=== PATIENT | female | born 1930 | race Caucasian/White ===

== ENCOUNTER 2018-07-11 09:29 | Outpatient (CLI) | payer MEDICARE ==
--- NOTE | 2018-07-12 12:18 | CT Report ---
Reason: DEMENTIA Procedure Date: 07/11/2018 Accession Number: [id number] / [id number] Procedure: CT - Head W/O CPT Code: FULL RESULT: EXAM: CT HEAD EXAM DATE: 07/11/2018 09:56 AM. CLINICAL HISTORY: Dementia. COMPARISON: None. TECHNIQUE: Multiaxial CT images were obtained from the foramen magnum to the vertex. Reformats: Sagittal and coronal. IV contrast: None. In accordance with CT protocol optimization, one or more of the following dose reduction techniques were utilized for this exam: automated exposure control, adjustment of mA and/or KV based on patient size, or use of iterative reconstructive technique. FINDINGS: Parenchyma: No intraparenchymal hemorrhage. No evidence of mass, midline shift, or CT findings of acute infarction. Thibodeaux-white differentiation is distinct. Diffuse chronic microangiopathic white matter changes are evident. Extraaxial Spaces: Normal for age. No subdural or epidural collections identified. Ventricles: The ventricles and cortical sulci are enlarged, consistent with age-related tissue loss. Sinuses and orbits: Imaged paranasal sinuses, orbits, and mastoids show no significant abnormality. Bones: No evidence of fracture or calvarial defect. Other: None. IMPRESSION: Generalized age-related cortical atrophic changes without evidence of acute intracranial abnormality. RADIA
== END 2018-07-11 09:30 | disposition home or self-care (01) ==
LOC: DI 09:29
PROVIDERS: ATTEND Internal Medicine
DX: F03.90 Unspecified dementia, unspecified severity, without behavioral disturbance, psychotic disturbance, mood disturbance, and anxiety (principal)
CPT/HCPCS: 70450

== ENCOUNTER 2018-08-03 14:28 | Outpatient (CLI) | payer MEDICARE ==
[2018-08-03 18:01] LABS: BASOPHILS # (AUTO) 0.1 10^3/uL (0.0-0.1); BASOPHILS % (AUTO) 0.7 %; EOSINOPHILS # (AUTO) 0.1 10^3/uL (0.0-0.7); EOSINOPHILS % (AUTO) 0.6 %; HGB - HEMOGLOBIN 13.5 g/dL (12.0-16.0); LYMPHOCYTES # (AUTO) 2.1 10^3/uL (1.5-3.5); LYMPHOCYTES % (AUTO) 16.2 %; MEAN CORPUSCULAR HEMOGLOBIN 29.9 pg (27.0-31.0); MEAN CORPUSCULAR HGB CONC 32.5 g/dL (32.0-36.0); MEAN CORPUSCULAR VOLUME 92.2 fL (81.0-99.0); MEAN PLATELET VOLUME 9.5 fL (7.9-10.8); MONOCYTES # (AUTO) 0.7 10^3/uL (0.0-1.0); MONOCYTES % (AUTO) 5.3 %; NEUTROPHILS # (AUTO) 9.8 10^3/uL (1.5-6.6); NEUTROPHILS % (AUTO) 77.2 %; PLT - PLATELET COUNT 245 10^3/uL (130-450); RED BLOOD COUNT 4.51 10^6/uL (4.20-5.40); RED CELL DISTRIBUTION WIDTH 13.7 % (12.0-15.0); WHITE BLOOD COUNT 12.7 x10^3/uL (4.8-10.8)
[2018-08-03 18:14] LABS: BUN - BLOOD UREA NITROGEN 13 mg/dL (6-20); CALCIUM 9.2 mg/dL (8.5-10.3); CARBON DIOXIDE - CO2 26 mmol/L (21-32); CHLORIDE 103 mmol/L (101-111); CREATININE 0.8 mg/dL (0.4-1.0); GFR - MDRD 68 (>89); GLUCOSE 109 mg/dL (70-100); SODIUM 139 mmol/L (135-145)
[2018-08-03 18:24] LABS: THYROID STIMULATING HORMONE 3.56 uIU/mL (0.34-5.60)
== END 2018-08-03 14:29 | disposition home or self-care (01) ==
LOC: LAB.F 14:28
PROVIDERS: ATTEND Internal Medicine
DX: I12.9 Hypertensive chronic kidney disease with stage 1 through stage 4 chronic kidney disease, or unspecified chronic kidney disease (principal); N18.3 Chronic kidney disease, stage 3 (moderate); J30.9 Allergic rhinitis, unspecified; F03.90 Unspecified dementia, unspecified severity, without behavioral disturbance, psychotic disturbance, mood disturbance, and anxiety; R73.01 Impaired fasting glucose; Z86.010 Personal history of colon polyps; L98.9 Disorder of the skin and subcutaneous tissue, unspecified
CPT/HCPCS: 36415; 80048; 82607; 84443; 85025

== ENCOUNTER 2019-07-28 05:59 | Outpatient (CLI) | payer MEDICARE | END 2019-07-28 06:00 | disposition critical access hospital (66) | LOC: EMS 05:59 | PROVIDERS: ATTEND Surgery | DX: R41.82 Altered mental status, unspecified (principal) | CPT/HCPCS: A0425; A0429 ==

== ENCOUNTER 2019-07-28 06:40 | Emergency (ER) | payer MEDICARE ==
[2019-07-28 06:50] VITALS: BP 160/82
--- NOTE | 2019-07-28 06:56 | ED Physician Documentation ---
PD HPI ALTERED MENTAL STATUS - Stated complaint Stated Complaint: ALOC - Chief complaint Chief Complaint: Neuro - History obtained from History obtained from: Patient, EMS - History of Present Illness Timing - onset: Today Basline status: Ambulatory, Confused, Home Recently seen: Not recently seen - Additional information Additional information: An 88-year-old woman who was brought in by EMS for evaluation of wandering into the neighbor's house in the middle of the night. 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 She is lived in the same house for over 30 years and knows the neighbors well. The neighbors called the police who came and took patient back to her own home and in the process of questioning her were concerned about her safety. Apparently she has been wandering potentially for months.EMS was summoned to bring her here for evaluation and there is a reported mental hold that will be sent by the police. They found a prescription for Risperdal and lisinopril and her home but they were quite old bottles. They said her house is immaculate. Patient herself is not able to provide me any history just answers "I just do not know" to every question. 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 HEENT: Cataracts - Present Medications Home Medications: Ambulatory Orders Medication Instructions Recorded Confirmed Aspirin [Aspir 81] 81 mg PO DAILY 09/11/13 04/11/14 Lisinopril [Zestril] 20 mg PO DAILY 09/11/13 04/11/14 - Allergies Allergies/Adverse Reactions: Allergies Allergy/AdvReac Type Severity Reaction Status Date / Time No Known Drug Allergies Allergy Verified 04/08/14 13:44 - Social History Does the pt smoke?: No Smoking Status: Never smoker Does the pt drink ETOH?: Yes Does the pt have substance abuse?: No - Immunizations Immunizations are current?: Yes PD ED PE NORMAL - Vitals Vital signs reviewed: Yes - General General: No acute distress, Well developed/nourished, Other (She knows her name but thinks that she is in [facility]. She is very pleasant smiling and laughing) - HEENT HEENT: Atraumatic, PERRL, EOMI, Moist mucous membranes, Pharynx benign, Other (There is a large scabbed lesion on the left side of her nose suspicious for a malignant lesion.) - Neck Neck: No adenopathy, Thyroid normal - Cardiac Cardiac: RRR, No murmur, Strong equal pulses - Respiratory Respiratory: No respiratory distress, Clear bilaterally - Abdomen Abdomen: Normal bowel sounds, Soft, Non tender, Non distended, No organomegaly - Derm Derm: Normal color, Warm and dry, Other (Lesion on her nose as noted above) - Extremities Extremities: No deformity, No tenderness to palpate, Normal ROM s pain, Other (Trace pretibial edema) - 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
[2019-07-28 07:16] LABS: BASOPHILS # (AUTO) 0.1 10^3/uL (0.0-0.1); BASOPHILS % (AUTO) 1.4 %; EOSINOPHILS # (AUTO) 0.1 10^3/uL (0.0-0.7); EOSINOPHILS % (AUTO) 1.9 %; HGB - HEMOGLOBIN 12.4 g/dL (12.0-16.0); LYMPHOCYTES # (AUTO) 1.3 10^3/uL (1.5-3.5); LYMPHOCYTES % (AUTO) 24.3 %; MEAN CORPUSCULAR HEMOGLOBIN 29.7 pg (27.0-31.0); MEAN CORPUSCULAR HGB CONC 31.3 g/dL (32.0-36.0); MEAN CORPUSCULAR VOLUME 94.7 fL (81.0-99.0); MEAN PLATELET VOLUME 10.2 fL (7.9-10.8); MONOCYTES # (AUTO) 0.4 10^3/uL (0.0-1.0); MONOCYTES % (AUTO) 7.2 %; NEUTROPHILS # (AUTO) 3.3 10^3/uL (1.5-6.6); NEUTROPHILS % (AUTO) 64.8 %; PLT - PLATELET COUNT 240 10^3/uL (130-450); RED BLOOD COUNT 4.18 10^6/uL (4.20-5.40); RED CELL DISTRIBUTION WIDTH 13.7 % (12.0-15.0); WHITE BLOOD COUNT 5.1 x10^3/uL (4.8-10.8)
[2019-07-28 07:36] LABS: ACETAMINOPHEN < 10 ug/mL (10-30); ALBUMIN 3.9 g/dL (3.2-5.5); ALBUMIN/GLOBULIN RATIO 1.2 (1.0-2.2); ALKALINE PHOSPHATASE 23 IU/L (42-121); ALT ALANINE AMINOTRANSFERASE 42 IU/L (10-60); AST ASPARTATE AMINOTRANSFERASE 38 IU/L (10-42); BILIRUBIN,TOTAL 0.7 mg/dL (0.2-1.0); BUN - BLOOD UREA NITROGEN 16 mg/dL (6-20); CARBON DIOXIDE - CO2 28 mmol/L (21-32); CHLORIDE 103 mmol/L (101-111); CREATININE 0.7 mg/dL (0.4-1.0); GFR - MDRD 79 (>89); GLUCOSE 104 mg/dL (70-100); LIPASE 32 U/L (22-51); SALICYLATE < 6.0 mg/dL; SODIUM 140 mmol/L (135-145); TOTAL PROTEIN 7.2 g/dL (6.7-8.2)
--- NOTE | 2019-07-28 07:48 | CT Report ---
Reason: confused Procedure Date: 07/28/2019 Accession Number: [id number] / [id number] Procedure: CT - HEAD WO CPT Code: FULL RESULT: EXAM: CT HEAD EXAM DATE: 07/28/2019 07:40 AM. CLINICAL HISTORY: Confused. COMPARISON: HEAD W/O 07/11/2018 9:54 AM. TECHNIQUE: Multiaxial CT images were obtained from the foramen magnum to the vertex. Reformats: Sagittal and coronal. IV contrast: None. In accordance with CT protocol optimization, one or more of the following dose reduction techniques were utilized for this exam: automated exposure control, adjustment of mA and/or KV based on patient size, or use of iterative reconstructive technique. FINDINGS: Parenchyma: No intraparenchymal hemorrhage. No evidence of mass, midline shift, or CT findings of acute infarction. Thibodeaux-white differentiation is distinct. Diffuse chronic microangiopathic white matter changes are evident. Extraaxial Spaces: Normal for age. No subdural or epidural collections identified. Ventricles: The ventricles and cortical sulci are enlarged, consistent with age-related tissue loss. Sinuses and orbits: Imaged paranasal sinuses, orbits, and mastoids show no significant abnormality. Bones: No evidence of fracture or calvarial defect. Other: None. IMPRESSION: Generalized age-related cortical atrophic changes without evidence of acute intracranial abnormality. RADIA
[2019-07-28 09:32] LABS: MUDS CUTOFF CONCENTRATIONS CUTOFF CONC BELOW:
[2019-07-28 09:37] LABS: BILIRUBIN,URINE NEGATIVE (NEGATIVE); GLUCOSE, URINE (UA) NEGATIVE (NEGATIVE); KETONES,URINE (UA) TRACE mg/dL (NEGATIVE); LEUKOCYTE ESTERASE, URINE SMALL (NEGATIVE); NITRITE,URINE NEGATIVE (NEGATIVE); OCCULT BLOOD,URINE NEGATIVE (NEGATIVE); PROTEIN,URINE NEGATIVE (NEGATIVE); UROBILINOGEN,URINE 0.2 (NORMAL) E.U./dL (NORMAL)
[2019-07-28 09:52] LABS: AMPHETAMINE SCREEN,URINE NEGATIVE (NEGATIVE); BENZODIAZEPINES SCREEN, URINE NEGATIVE (NEGATIVE); COCAINE SCREEN URINE NEGATIVE (NEGATIVE); METHADONE SCREEN, URINE NEGATIVE (NEGATIVE); METHAMPHETAMINES SCREEN, URINE NEGATIVE (NEGATIVE); OPIATE SCREEN, URINE NEGATIVE (NEGATIVE); OXYCODONE SCREEN, URINE NEGATIVE (NEGATIVE); PROPOXYPHENE SCREEN, URINE NEGATIVE (NEGATIVE); TRICYCLIC ANTIDEPRESSANT,URINE NEGATIVE (NEGATIVE)
[2019-07-28 10:01] LABS: CLARITY,URINE CLEAR (CLEAR); RBC,URINE 0-5 /HPF (0-5); SQUAMOUS EPITHELIAL CELL,UR RARE Squamous (<= Few)
[2019-07-28 10:02] LABS: BACTERIA,URINE Rare /HPF (None Seen)
--- NOTE | 2019-07-28 13:50 | ED Physician Documentation ---
ED Addendum - Addendum Addendum: 07/28/19 13:48 The patient is more alert and oriented after being here in the ER. She is able to say that her son lives in [place] and that she does grocery shopping and goes by taxi and her address. Her CT scan and lab testing are normal without any acute signs of abnormalities. She is seen by social work and also they discussed with her APS linoleum floor installer and her son. The apparently they are looking into dementia care unit placement but are not able to do that urgently. The patient was deemed safe for home at this point and her linoleum floor installer would come and visit her this afternoon and reassess. The patient is discharged home in stable condition. Diagnosis dementia with wandering Disposition discharged home in stable condition
== END 2019-07-28 14:13 | disposition home or self-care (01) ==
LOC: EDSEX → ED 06:40
DX: F03.91 Unspecified dementia, unspecified severity, with behavioral disturbance (principal); Z91.83 Wandering in diseases classified elsewhere; I10 Essential (primary) hypertension; Z79.82 Long term (current) use of aspirin
CPT/HCPCS: 36415; 70450; 80053; 80306; 80307; 80320; 80329; 81001; 81003; 83690; 84443; 85025; 87086; 93005; 99281; 99284

== ENCOUNTER 2020-06-02 18:04 | Emergency (ER) | payer MEDICARE ==
[2020-06-02] MEDS ORDERED: cefTRIAXone 1 GM VIAL IM STA (18:25)
[2020-06-02] MEDS ORDERED: LIDOCAINE 1% 2 ML VIAL MC ONE (18:25)
[2020-06-02 18:45] LABS: BASOPHILS # (AUTO) 0.1 10^3/uL (0.0-0.1); BASOPHILS % (AUTO) 0.8 %; EOSINOPHILS # (AUTO) 0.2 10^3/uL (0.0-0.7); EOSINOPHILS % (AUTO) 2.3 %; HGB - HEMOGLOBIN 12.6 g/dL (12.0-16.0); LYMPHOCYTES # (AUTO) 2.2 10^3/uL (1.5-3.5); LYMPHOCYTES % (AUTO) 22.2 %; MEAN CORPUSCULAR HEMOGLOBIN 30.4 pg (27.0-31.0); MEAN CORPUSCULAR HGB CONC 32.3 g/dL (32.0-36.0); MEAN CORPUSCULAR VOLUME 94.2 fL (81.0-99.0); MEAN PLATELET VOLUME 10.8 fL (7.9-10.8); MONOCYTES # (AUTO) 0.6 10^3/uL (0.0-1.0); MONOCYTES % (AUTO) 5.8 %; NEUTROPHILS # (AUTO) 6.7 10^3/uL (1.5-6.6); NEUTROPHILS % (AUTO) 68.4 %; PLT - PLATELET COUNT 236 10^3/uL (130-450); RED BLOOD COUNT 4.14 10^6/uL (4.20-5.40); RED CELL DISTRIBUTION WIDTH 13.5 % (12.0-15.0); WHITE BLOOD COUNT 9.7 x10^3/uL (4.8-10.8)
[2020-06-02 18:59] LABS: ALBUMIN 3.8 g/dL (3.2-5.5); ALBUMIN/GLOBULIN RATIO 1.2 (1.0-2.2); BILIRUBIN,TOTAL 0.5 mg/dL (0.2-1.0); TOTAL PROTEIN 6.9 g/dL (6.7-8.2)
--- NOTE | 2020-06-02 19:17 | ED Physician Documentation ---
History of Present Illness - Stated complaint Stated Complaint: LETHARGIC - Chief complaint Chief Complaint: UTI - History obtained from History obtained from: Patient, EMS - History of Present Illness Timing: How many days ago (several days) Pain level max: 0 Pain level now: 0 - Additonal information Additional information: Patient brought in by EMS for UTI. She was diagnosed 2 days ago, started on Macrobid. Staff states that she is more combative than usual and brought her here for evaluation. Patient is awake and pleasant here. She states she was raised in [facility]. She has no complaints. No fevers. No vomiting. 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 HEENT: Cataracts - Present Medications Home Medications: Ambulatory Orders Medication Instructions Recorded Confirmed Aspirin [Aspir 81] 81 mg PO DAILY 09/11/13 04/11/14 lisinopriL [Zestril] 20 mg PO DAILY 09/11/13 04/11/14 Ciprofloxacin HCl [Cipro] 500 mg PO BID #14 tablet 06/02/20 - Allergies Allergies/Adverse Reactions: Allergies Allergy/AdvReac Type Severity Reaction Status Date / Time No Known Drug Allergies Allergy Verified 06/02/20 18:14 - Social History Does the pt smoke?: No Smoking Status: Never smoker Does the pt drink ETOH?: Yes Does the pt have substance abuse?: No - Immunizations Immunizations are current?: Yes - POLST Patient has POLST: No PD ED PE NORMAL - Vitals Vital signs reviewed: Yes - General General: No acute distress, Well developed/nourished, Other (alert, pleasant) - HEENT HEENT: Moist mucous membranes - Neck Neck: Supple, no meningeal sign - Cardiac Cardiac: RRR - Respiratory Respiratory: No respiratory distress, Clear bilaterally - Abdomen Abdomen: Soft, Non tender, Non distended - Back Back: No CVA TTP - Derm Derm: Warm and dry - Extremities Extremities: Other (1+ bilateral lower extremity pitting edema) - Neuro Neuro: Other (Alert, pleasant) Results - Vitals Vitals: Vital Signs - 24 hr 06/02/20 06/02/20 18:09 19:18 Temperature 37.1 C Heart Rate 76 72 Respiratory 18 18 Rate Blood Pressure 118/63 113/46 L O2 Saturation 96 98 Oxygen O2 Source Room air - Labs Labs: Laboratory Tests 06/02/20 06/02/20 06/02/20 18:30 18:30 18:30 WBC 9.7 RBC 4.14 L Hgb 12.6 Hct 39.0 MCV 94.2 MCH 30.4 MCHC 32.3 RDW 13.5 Plt Count 236 MPV 10.8 Neut # (Auto) 6.7 H Lymph # (Auto) 2.2 Coles # (Auto) 0.6 Eos # (Auto) 0.2 Baso # (Auto) 0.1 Absolute Nucleated RBC 0.00 Nucleated RBC % 0.0 Sodium 142 Potassium 3.1 L Chloride 101 Carbon Dioxide 31 Anion Gap 10.0 BUN 22 H Creatinine 1.0 Estimated GFR (MDRD) 52 L Glucose 123 H Lactic Acid 1.1 Calcium 9.0 Total Bilirubin 0.5 AST 55 H ALT 47 Alkaline Phosphatase 28 L Total Protein 6.9 Albumin 3.8 Globulin 3.1 Albumin/Globulin Ratio 1.2 Lipase 34 PD MEDICAL DECISION MAKING - ED course Complexity details: reviewed old records, considered differential, d/w patient ED course: Patient with a UTI. Her cultures and sensitivities were sent with her. She is on Macrobid, but grew out Pseudomonas. It is resistant to most oral antibiotics other than fluoroquinolones. Therefore we will place her on ciprofloxacin. Patient is well-appearing, nontoxic. Afebrile. No sepsis. This document was made in part using voice recognition software. While efforts are made to proofread this document, sound alike and grammatical errors may occur. Departure - Departure Disposition: 01 Home, Self Care Clinical Impression: Urinary tract infection Qualifiers: Urinary tract infection type: acute cystitis Hematuria presence: without hematuria Qualified Code(s): N30.00 - Acute cystitis without hematuria Condition: Good Instructions: ED UTI Cystitis Female Follow-Up: your,doctor in 3 days [Other] Prescriptions: Ciprofloxacin HCl [Cipro] 500 mg PO BID #14 tablet Comments: Stop the Macrobid. Start the ciprofloxacin. Return if she worsens. Discharge Date/Time: 06/02/20 19:25
[2020-06-02 19:19] VITALS: BP 113/46
== END 2020-06-02 19:25 | disposition home or self-care (01) ==
LOC: EDUNIT# → ED 18:04
DX: N30.00 Acute cystitis without hematuria (principal); B96.5 Pseudomonas (aeruginosa) (mallei) (pseudomallei) as the cause of diseases classified elsewhere; F03.90 Unspecified dementia, unspecified severity, without behavioral disturbance, psychotic disturbance, mood disturbance, and anxiety; I10 Essential (primary) hypertension; Z79.82 Long term (current) use of aspirin
CPT/HCPCS: 36415; 80053; 83605; 83690; 85025; 87040; 96372; 99283; 99284

== ENCOUNTER 2020-08-01 12:46 | Outpatient (CLI) | payer MEDICARE | END 2020-08-01 12:47 | disposition critical access hospital (66) | LOC: EMS 12:46 | PROVIDERS: ATTEND Surgery | DX: R53.83 Other fatigue (principal) | CPT/HCPCS: A0425; A0429 ==

== ENCOUNTER 2020-08-01 13:03 | Emergency (ER) | payer MEDICARE ==
--- NOTE | 2020-08-01 13:27 | ED Physician Documentation ---
History of Present Illness - Stated complaint Stated Complaint: HIP PX/GLF - Chief complaint Chief Complaint: Ext Problem - Additonal information Additional information: 89-year-old female presents the emergency department from her care facility for evaluation of possible hip fracture. At baseline she does have dementia and the halfway reported 2 falls recently. They are concerned that she may have a hip fracture and that she has been less ambulatory than normal. History is difficult to obtain from patient secondary to dementia. She denies pain at this time and otherwise appears well. 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 HEENT: Cataracts - Present Medications Home Medications: Ambulatory Orders Medication Instructions Recorded Confirmed Aspirin [Aspir 81] 81 mg PO DAILY 09/11/13 04/11/14 lisinopriL [Zestril] 20 mg PO DAILY 09/11/13 04/11/14 Ciprofloxacin HCl [Cipro] 500 mg PO BID #14 tablet 06/02/20 - Allergies Allergies/Adverse Reactions: Allergies Allergy/AdvReac Type Severity Reaction Status Date / Time No Known Drug Allergies Allergy Verified 08/01/20 13:15 - Social History Does the pt smoke?: No Smoking Status: Never smoker Does the pt drink ETOH?: Yes Does the pt have substance abuse?: No - Immunizations Immunizations are current?: Yes - POLST Patient has POLST: No PD ED PE EXPANDED - General General: No acute distress, Other (demented) - Neck Neck: Supple w/out meningeal sx. No: No tenderness, Soft tissue TTP, Limited ROM - Cardiac Cardiac: Regular Rate, Regular Rhythm, Radial strong equal, Femoral strong equa l, Pedal strong equal, Cap refill < 2 sec - Respiratory Respiratory: Clear to ausultation morenita. No: Distress, Labored - Back Back: No: Vertebral tenderness, Soft tissue tenderness (No vertebral tenderness elicited with palpation of the thoracic and lumbar spine midline.) - Extremities Extremities: Other (Full range of motion bilateral hips passively. No leg shortening. 2+ femoral pulse bilaterally. No ecchymosis or swelling.) - GCS Eye Opening: To Voice Motor: Obeys Commands Verbal: Confused Total: 13 Results - Vitals Vitals: Vital Signs - 24 hr 08/01/20 08/01/20 13:10 16:00 Temperature 35.9 C L Heart Rate 63 68 Respiratory 14 16 Rate Blood Pressure 148/67 H 144/65 H O2 Saturation 96 95 Oxygen O2 Source Room air - Rads (name of study) Hip Bilateral Radiology: Final report received (No acute fracture or dislocation) PD MEDICAL DECISION MAKING - ED course Complexity details: reviewed results, considered differential ED course: 89-year-old female with an underlying history of dementia presents to the emergency department for evaluation of possible hip fracture after 2 falls in the last week. Screening x-ray of the hips and pelvis does not show any acute fracture. On exam patient had no leg shortening or significant pain with ranging the hips passively. There were no findings on exam of falls or trauma. Patient will be transported back to her memory care facility Departure - Departure Disposition: 01 Home, Self Care Clinical Impression: Fall Dementia Qualifiers: Dementia type: unspecified type Dementia behavioral disturbance: without behavioral disturbance Qualified Code(s): F03.90 - Unspecified dementia without behavioral disturbance Condition: Stable Record reviewed to determine appropriate education?: Yes Comments: The x-ray of Fercho's hip and pelvis do not show any broken bones bilaterally. Please discuss this ED visit with the attending physician Discharge Date/Time: 08/01/20 16:00
--- NOTE | 2020-08-01 14:17 | XRAY Report ---
PROCEDURE: Hips 2V BILAT INDICATIONS: eval for possible fx. recent fall TECHNIQUE: AP view of the pelvis and crosstable lateral views of both hips. COMPARISON: None. FINDINGS: Bones: No acute fracture is identified in the proximal femur is. However, evaluation is compromised on lateral views due to overlying soft tissues. No suspicious bony lesions. The visualized pelvic ri ng appears intact. Multilevel degenerative changes are seen in the spine. The sacrum is not well nisa luated due to overlying soft tissues. Soft tissues: No suspicious soft tissue calcifications or masses. Calcified injection granulomas are noted in the gluteal regions bilaterally. IMPRESSION: No acute fracture is identified. If symptoms persist, CT or MRI may be obtained for further evaluatio n. Multilevel degenerative changes are seen in the spine. Reviewed by: Wilfrid Reece MD on 08/01/2020 2:16 PM PDT Approved by: Wilfrid Reece MD on 08/01/2020 2:16 PM PDT Station ID: [id number]
[2020-08-01 16:35] VITALS: BP 144/65
== END 2020-08-01 16:00 | disposition home or self-care (01) ==
LOC: EDUNIT# → ED 13:03
DX: M25.552 Pain in left hip (principal); M25.551 Pain in right hip; W19.XXXA Unspecified fall, initial encounter; F03.90 Unspecified dementia, unspecified severity, without behavioral disturbance, psychotic disturbance, mood disturbance, and anxiety; I10 Essential (primary) hypertension; Z79.82 Long term (current) use of aspirin
CPT/HCPCS: 73521; 99283

== ENCOUNTER 2020-08-01 15:34 | Outpatient (CLI) | payer MEDICARE | END 2020-08-01 15:35 | disposition home or self-care (01) | LOC: EMS 15:34 | PROVIDERS: ATTEND Surgery | DX: F03.90 Unspecified dementia, unspecified severity, without behavioral disturbance, psychotic disturbance, mood disturbance, and anxiety (principal); Z91.81 History of falling | CPT/HCPCS: A0425; A0428 ==

== ENCOUNTER 2020-09-26 03:48 | Outpatient (CLI) | payer MEDICARE | END 2020-09-26 03:49 | disposition critical access hospital (66) | LOC: EMS 03:48 | PROVIDERS: ATTEND Surgery | DX: R51.9 Headache, unspecified (principal); M25.562 Pain in left knee; M25.552 Pain in left hip | CPT/HCPCS: A0425; A0427 ==

== ENCOUNTER 2020-09-26 04:47 | Emergency (ER) | payer MEDICARE ==
--- NOTE | 2020-09-26 04:46 | ED Physician Documentation ---
PD HPI Fall - Stated complaint Stated Complaint: GLF - History obtained from History obtained from: EMS, Caregiver - History of Present Illness Mechanism of injury: Lost balance, Unknown Fall distance: Standing position Where injury occurred: Other (Memory care and was heard by staff to fall in the next room. They found her next to a wheelchair that she presumably tripped over. She was awake and conversant. No apparent loss of consciousness. There is a small bump on her forehead and she complained of pain in her knee and back. 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 No: Neck, Chest, Abdomen Associated symptoms: No: LOC, Weakness, Paresthesias Similar symptoms before: Has not had sx before Recently seen: Not recently seen Review of Systems Unable to obtain: Dementia, Other (info from EMS but limited on recent ROS.) Constitutional: denies: Fever Respiratory: denies: Cough GI: denies: Vomiting, Diarrhea PD PAST MEDICAL HISTORY - Past Medical History Cardiovascular: Hypertension Respiratory: None Neuro: Dementia Endocrine/Autoimmune: None GI: Colon polyps : None HEENT: None Psych: None Musculoskeletal: None Derm: None - Past Surgical History Past Surgical History: Yes General: Appendectomy, 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 HEENT: Cataracts - Present Medications Home Medications: Ambulatory Orders Medication Instructions Recorded Confirmed Aspirin [Aspir 81] 81 mg PO DAILY 09/11/13 04/11/14 lisinopriL [Zestril] 20 mg PO DAILY 09/11/13 04/11/14 Ciprofloxacin HCl [Cipro] 500 mg PO BID #14 tablet 06/02/20 - Allergies Allergies/Adverse Reactions: Allergies Allergy/AdvReac Type Severity Reaction Status Date / Time No Known Drug Allergies Allergy Verified 09/26/20 05:00 - Social History Does the pt smoke?: No Smoking Status: Never smoker Does the pt drink ETOH?: Yes Does the pt have substance abuse?: No - Immunizations Immunizations are current?: Yes - POLST Patient has POLST: No PD ED PE NORMAL - Vitals Vital signs reviewed: Yes - General General: Well developed/nourished. No: Alert and oriented X 3 (alert and conversant. Knows name and . Not sure of time nor location. Pleasant. ) - HEENT HEENT: Other (There is a localized area of swelling and tenderness in the right forehead. No bruising as yet. The rest of the head is nontender. Pupils equal round and reactive, no lower facial bone tenderness.) - Neck Neck: Supple, no meningeal sign, No adenopathy, Other (There is some mild complaint of pain and tenderness in the lower cervical and upper thoracic area to palpation. Also some tenderness in the mid lumbar area. No obvious deformity noted.) - Cardiac Cardiac: RRR - Respiratory Respiratory: No respiratory distress, Clear bilaterally - Abdomen Abdomen: Soft, Non tender, Non distended - Derm Derm: Normal color, Warm and dry - Extremities Extremities: Other (There is some localized bruising in the medial aspect of the right kneecap without any obvious deformity. The left patella is normal and not tender. There is some left hip discomfort on range of motion of the hip. no obvious deformity noted.) - Neuro Neuro: No motor deficit, No sensory deficit, Normal speech Eye Opening: Spontaneous Motor: Obeys Commands Verbal: Confused GCS Score: 14 - Psych Psych: Normal mood Results - Vitals Vitals: Vital Signs - 24 hr 09/26/20 09/26/20 04:52 06:59 Temperature 36.8 C 36.6 C Heart Rate 78 75 Respiratory 18 16 Rate Blood Pressure 149/73 H 142/102 H O2 Saturation 100 95 Oxygen O2 Source Room air - Rads (name of study) head CT Radiology: Prelim report reviewed (no ICH nor acute process), See rad report spine CT Radiology: Prelim report reviewed (arthritic changes; no fractures. some fecal impaction. ), See rad report right knee Radiology: Prelim report reviewed (no acute fractures. Joint effusion. ), See rad report left hip Radiology: Prelim report reviewed (no acute fractures. ), See rad report PD MEDICAL DECISION MAKING - ED course Complexity details: considered differential (Low suspicion for acute fractures or intracranial bleeding. However she does have some pain in the upper thoracic and mid lumbar areas. She is got some bruising of the right knee and tender at the left hip on range of motion. Also forehead contusion. Can get imaging to ensure no acute traumatic ), d/w patient Departure - Departure Disposition: 01 Home, Self Care Clinical Impression: Fall from slip, trip, or stumble Qualifiers: Encounter type: initial encounter Qualified Code(s): W01.0XXA - Fall on same level from slipping, tripping and stumbling without subsequent striking against object, initial encounter Forehead contusion Qualifiers: Encounter type: initial encounter Qualified Code(s): S00.83XA - Contusion of other part of head, initial encounter Knee contusion Qualifiers: Encounter type: initial encounter Laterality: right Qualified Code(s): S80.01XA - Contusion of right knee, initial encounter Back strain Qualifiers: Encounter type: initial encounter Qualified Code(s): S39.012A - Strain of muscle, fascia and tendon of lower back, initial encounter Condition: Stable Record reviewed to determine appropriate education?: Yes Instructions: ED Contusion Face Comments: Imaging test did not show any acute fractures or injuries. We imaged your head neck and spine as well as your right knee and left hip. Your imaging of the lower back did show a large amount of stool in the rectum. Consider a suppository or stool softeners later today by your usual caregivers.
[2020-09-26] MEDS ORDERED: ACETAMINOPHEN 325 MG TABLET PO STA (07:15)
--- NOTE | 2020-09-26 08:00 | CT Report ---
PROCEDURE: HEAD WO INDICATIONS: fell and struck head/knee; pain in spine too TECHNIQUE: Noncontrast 4.5 mm thick angled axial sections acquired from the foramen magnum to the vertex. For r adiation dose reduction, the following was used: automated exposure control, adjustment of mA and/or kV according to patient size. COMPARISON: None. FINDINGS: Image quality: Excellent. CSF spaces: Basal cisterns are patent. No extra-axial fluid collections. Ventricles are normal in size and shape. Brain: No midline shift. No intracranial masses or hemorrhage. Thibodeaux-white matter interface is norm al. Age-related volume loss and moderate to severe small vessel ischemic change. Skull and face: Den varium and visualized facial bones are intact, without suspicious lesions. Sinuses: Visualized sinuses and mastoids are clear. IMPRESSION: 1. Age-related volume loss and moderate to severe small vessel ischemic change. 2. No evidence of acute stroke, hemorrhage, or mass. No evidence of significant sequelae of acute int racranial trauma. A preliminary report with the above findings was provided at the time of the study by [facility]. Reviewed by: Primitivo Wagner MD on 09/26/2020 7:59 AM PST Approved by: Primitivo Wagner MD on 09/26/2020 7:59 AM PST Station ID: [id number]
--- NOTE | 2020-09-26 08:06 | CT Report ---
PROCEDURE: CERVICAL SPINE WO INDICATIONS: fell and struck head/knee; pain in spine too TECHNIQUE: Noncontrast 3 mm thick sections acquired from the skull base to the T4 level. Sagittal and coronal r eformats were then constructed. For radiation dose reduction, the following was used: automated exp osure control, adjustment of mA and/or kV according to patient size. COMPARISON: None. FINDINGS: Image quality: Excellent. Bones: No fractures or dislocations. Visualized superior ribs are intact. Cervical spondylitic garcia ge. The combination of uncovertebral joint osteophytes and facet hypertrophy result in multilevel bon y foraminal narrowing. Soft tissues: Prevertebral soft tissues are normal in thickness. No paravertebral hematomas. No ap ical pneumothoraces. IMPRESSION: 1. No evidence acute cervical fracture or dislocation. 2. Cervical spondylitic change. A preliminary report with the above findings was provided at the time of the study by [facility]. Reviewed by: Primitivo Wagner MD on 09/26/2020 8:05 AM [facility] Approved by: Primitivo Wganer MD on 09/26/2020 8:05 AM PST Station ID: [id number]
--- NOTE | 2020-09-26 08:08 | CT Report ---
PROCEDURE: THORACIC SPINE WO INDICATIONS: fell and struck head/knee; pain in spine too TECHNIQUE: Noncontrast 3 mm thick sections acquired through the region of interest in the thoracic spine. Sagit alison and coronal reformats were then constructed. For radiation dose reduction, the following was used : automated exposure control, adjustment of mA and/or kV according to patient size. COMPARISON: None. FINDINGS: Image quality: Excellent. Bones: There is normal overall bony alignment. No acute vertebral body compression fractures. No s uspicious sclerotic or lytic bony lesions. Central spinal canal is of normal overall caliber. Diffu se thoracic degenerative change. Soft tissues: No paravertebral masses or hematomas. Visualized posteromedial lungs appear clear. IMPRESSION: No evidence of acute thoracic fracture or dislocation. A preliminary report with the above findings was provided at the time of the study by [facility]. Reviewed by: Primitivo Wagner MD on 09/26/2020 8:[address] [facility] Approved by: Primitivo Wagner MD on 09/26/2020 8:06 AM PST Station ID: [id number]
--- NOTE | 2020-09-26 08:13 | CT Report ---
PROCEDURE: LUMBAR SPINE WO INDICATIONS: fell and struck head/knee; pain in spine too TECHNIQUE: Noncontrast 3 mm thick sections acquired from the T12 level to the sacrum. Sagittal and coronal refo rmats were constructed. For radiation dose reduction, the following was used: automated exposure co ntrol, adjustment of mA and/or kV according to patient size. COMPARISON: None. FINDINGS: Image quality: Excellent. Bones: Trace degenerative anterolisthesis of L5 on S1. Trace degenerative retrolisthesis of L3 on L4. Mild degenerative retrolisthesis of L1 on L2. No acute vertebral body compression fractures. No makayla picious lytic or blastic bony lesions. Central spinal caliber is of normal overall caliber. No pars defects. T12-L1: No canal stenosis or foraminal stenosis. L1-L2: Severe disc height loss and partial bony ankylosis. Posterior disc plus osteophyte. No sign ificant canal stenosis. Moderate left foraminal stenosis. L2-L3: Severe disc height loss. Posterior disc plus osteophyte. Mild canal stenosis. Moderate righ t foraminal stenosis. L3-L4: Mild canal stenosis secondary to posterior disc bulge plus facet and ligament hypertrophy. M ild right foraminal stenosis. L4-L5: Central canal stenosis, likely moderate, secondary to disc bulge and facet and ligament hype rtrophy. At least mild bilateral foraminal narrowing. L5-S1: Mild canal stenosis. Facet and ligament hypertrophy. Mild right and moderate left foraminal narrowing. Soft tissues: No retroperitoneal masses or hematomas. Visualized aorta is normal in caliber. Fecal impaction IMPRESSION: 1. No evidence of acute lumbar compression fracture. 2. Diffuse degenerative change with multilevel canal stenosis. A preliminary report with the above findings was provided at the time of the study by [facility] [place] [facility]. Reviewed by: Primitivo Wagner MD on 09/26/2020 8:12 AM [facility] Approved by: Primitivo Wagner MD on 09/26/2020 8:12 AM PST Station ID: [id number]
--- NOTE | 2020-09-26 08:20 | XRAY Report ---
PROCEDURE: Hip w/Pelvis 2-3V LT INDICATIONS: fell and struck head/knee; pain in spine too TECHNIQUE: AP pelvis with lateral view(s) of the left hip(s). COMPARISON: None. FINDINGS: Bones: No fractures or dislocations. Pelvic ring appears intact. No suspicious bony lesions. Moder ate left hip degenerative arthritis. Soft tissues: The visualized bowel gas pattern is normal. No suspicious soft tissue calcifications. IMPRESSION: No evidence acute bony abnormality of the pelvis and left hip. Moderate left hip degener ative arthritis. A preliminary report with the above findings was provided at the time of the study by [facility]. Reviewed by: Primitivo Wagner MD on 09/26/2020 8:18 AM PST Approved by: Primitivo Wagner MD on 09/26/2020 8:18 AM PST Station ID: [id number]
--- NOTE | 2020-09-26 08:22 | XRAY Report ---
PROCEDURE: Knee 3 View RT INDICATIONS: fell and struck head/knee; pain in spine too TECHNIQUE: 3 views of the right knee(s) were acquired. COMPARISON: None. FINDINGS: Bones: No fractures or dislocations. No suspicious bony lesions. Soft tissues: Moderate joint effusion. No suspicious soft tissue calcifications. Extensive vascular calcifications. IMPRESSION: 1. No evidence acute bony abnormality of the right knee. 2. Knee joint effusion. 3. Peripheral vascular disease. Comment: If clinically suspect knee joint derangement, knee MRI may be helpful. A preliminary report with the above findings was provided at the time of the study by [facility]. Reviewed by: Primitivo Wagner MD on 09/26/2020 8:20 AM [facility] Approved by: Primitivo Wagner MD on 09/26/2020 8:20 AM PST Station ID: [id number]
[2020-09-26 08:37] VITALS: BP 138/79
== END 2020-09-26 08:37 | disposition home or self-care (01) ==
LOC: ED 04:47
DX: S00.83XA Contusion of other part of head, initial encounter (principal); S80.01XA Contusion of right knee, initial encounter; S39.012A Strain of muscle, fascia and tendon of lower back, initial encounter; W01.0XXA Fall on same level from slipping, tripping and stumbling without subsequent striking against object, initial encounter; Y93.01 Activity, walking, marching and hiking; Y92.129 Unspecified place in nursing home as the place of occurrence of the external cause; M47.812 Spondylosis without myelopathy or radiculopathy, cervical region; M47.814 Spondylosis without myelopathy or radiculopathy, thoracic region; M47.816 Spondylosis without myelopathy or radiculopathy, lumbar region; M48.061 Spinal stenosis, lumbar region without neurogenic claudication; M16.12 Unilateral primary osteoarthritis, left hip; I73.9 Peripheral vascular disease, unspecified; I10 Essential (primary) hypertension; F03.90 Unspecified dementia, unspecified severity, without behavioral disturbance, psychotic disturbance, mood disturbance, and anxiety; Z79.82 Long term (current) use of aspirin
CPT/HCPCS: 70450; 72125; 72128; 72131; 73502; 73562; 99284; A9270